=== PATIENT | male | born 1950 | race Caucasian/White ===

== ENCOUNTER 2017-09-16 12:15 | Inpatient (IN) | payer SELFPAY ==
[2017-09-16] VITALS (13 sets, daily range): BP systolic 107–148; BP diastolic 65–93
[~2017-09-16] VITALS: Ht 162.6 cm; Wt 68.1 kg
[~2017-09-16 12:15] MED LIST: HEPARIN SODIUM 1,000 UNIT/1ML VIAL IV ONE; NICARDIPINE 100MCG/ML 10ML VIAL (CATH LAB) IV ONE; NITROGLYCERIN 50MCG/ML 10ML VIAL (CATH LAB) IV ONE
[2017-09-16 12:44] LABS: BASOPHILS % 0.1 % (0.0-2.0); HEMATOCRIT. 46.7 % (42.0-52.0); HEMOGLOBIN. 15.6 g/dL (14.0-18.0); MEAN CORPUSCULAR HEMOGLOBIN 29.7 pg (28.0-32.0); MEAN CORPUSCULAR VOLUME 89.2 fL (80.0-94.0); MEAN PLATELET VOLUME 9.8 fl (7.4-10.4); MONOCYTES % 2.6 % (2.0-8.0); NEUTROPHILS % 90.3 % (40.0-76.0); PLATELET 172 x1000/uL (130-400); RED BLOOD CELL COUNT 5.24 mill/uL (4.7-6.1); RED CELL DISTRIBUTION WIDTH 13.5 % (11.6-14.6)
[2017-09-16] MEDS ORDERED: ASPIRIN 325MG EC TABLET PO ONE (12:45)
[2017-09-16] MEDS ORDERED: NITROGLYCERIN 0.4MG TABLET SL SL ONE (12:45)
[2017-09-16 12:53] LABS: PROTHROMBIN TIME 10.8 sec (9.4-11.6)
[2017-09-16 12:55] LABS: CHLORIDE 101 mEq/L (98-107)
[2017-09-16] MEDS ORDERED: NITROGLYCERIN 0.4MG TABLET SL SL PRN (13:00)
[2017-09-16 13:02] LABS: PLATELET ESTIMATE NORMAL
[2017-09-16] MEDS ORDERED: DOCUSATE SODIUM 100MG CAPSULE PO PRN (13:30)
[2017-09-16] MEDS ORDERED: HYDROCODONE/ACETAMINOPHEN 5/325MG TABLET PO PRN (13:30)
[2017-09-16] MEDS ORDERED: GUAIFENESIN 200MG/10ML SUGAR FREE UDC PO PRN (13:30)
[2017-09-16] MEDS ORDERED: MORPHINE SULFATE 4 MG/ML CPJ (NOT FOR IM USE) IV PRN ×2 (13:30→17:16)
[2017-09-16] MEDS ORDERED: ACETAMINOPHEN 325MG TABLET PO PRN ×2 (13:30→16:30)
[2017-09-16] MEDS ORDERED: CLONIDINE 0.1MG TABLET PO PRN (13:30)
[2017-09-16] MEDS ORDERED: ONDANSETRON HCL 4MG/2ML VIAL IV PRN ×2 (13:30→16:30)
[2017-09-16] MEDS ORDERED: MAGNESIUM/ALUMINUM HYDROXIDE/SIMETHICONE 30ML UDC PO PRN (13:30)
[2017-09-16] MEDS ORDERED: IPRATROPIUM/ALBUTEROL 0.5-3(2.5)MG/3ML NEB INH PRN (13:30)
[2017-09-16] MEDS ORDERED: LORAZEPAM 2MG/ML CPJ IV PRN (13:30)
[2017-09-16] MEDS ORDERED: DIPHENHYDRAMINE 50MG/ML VIAL IV PRN (13:30)
[2017-09-16] MEDS ORDERED: NA PHOS,M-B/NA PHOS,DI-BA ENEMA 118ML PR PRN (13:30)
[2017-09-16] MEDS ORDERED: HEPARIN 5000 UNITS/ML VIAL IV ONE (14:00)
[2017-09-16] MEDS ORDERED: FENTANYL CITRATE/PF 50MCG/ML 2ML VIAL ONE (14:52)
[2017-09-16] MEDS ORDERED: IODIXANOL 320MG/ML 100 ML BOTTLE IV ONE ×2 (14:52→15:34)
[2017-09-16] MEDS ORDERED: MIDAZOLAM HCL 2 MG/2 ML VIAL ONE (14:52)
[2017-09-16] MEDS ORDERED: IOVERSOL 240MG/ML 100ML BOTTLE IV ONE (14:52)
[2017-09-16] MEDS ORDERED: LIDOCAINE HCL 1% 20ML VIAL (Pyxis) INJ ONE (14:53)
[2017-09-16] MEDS ORDERED: CLOPIDOGREL 75MG TABLET ONE (15:53)
[2017-09-16] MEDS ORDERED: METOPROLOL TARTRATE 5MG/5ML VIAL IV ONE (16:21)
[2017-09-16] MEDS ORDERED: MORPHINE SULFATE 2 MG/ML CPJ (NOT FOR IM USE) IV PRN (16:30)
[2017-09-16] MEDS ORDERED: ATROPINE SULFATE 1MG/10ML SYR IV PRN (16:30)
[2017-09-16] MEDS ORDERED: CLOPIDOGREL 75MG TABLET PO ONE (16:30)
[2017-09-16] MEDS ORDERED: INFLUENZA VIRUS VACCINE 0.5ML SYR IM ONE (17:50)
[2017-09-16] MEDS ORDERED: PNEUMOCOCCAL 23-VAL P-SAC VAC 0.5 ML IM ONE (17:50)
[2017-09-16] MEDS: CARVEDILOL 3.125 MG TABLET PO SCH ×2 (18:12→21:00)
[2017-09-16] MEDS: NITROGLYCERIN OINT 1GM/INCH UDPKT TD SCH (18:13)
[2017-09-16] MEDS: ENALAPRIL 2.5MG TABLET PO SCH ×2 (18:13→21:00)
[2017-09-16] MEDS: ENOXAPARIN 40MG/0.4ML SYR SUBCUT SCH (18:14)
[2017-09-16 18:26] LABS: CHLORIDE 104 mEq/L (98-107)
[2017-09-16] MEDS: ATORVASTATIN CALCIUM 20MG TABLET PO SCH (21:27)
[2017-09-17] VITALS (25 sets, daily range): BP systolic 90–129; BP diastolic 54–74
[2017-09-17] MEDS: NITROGLYCERIN OINT 1GM/INCH UDPKT TD SCH ×4 (00:24→17:28)
[2017-09-17 05:21] LABS: BASOPHILS % 0.1 % (0.0-2.0); HEMATOCRIT. 42.2 % (42.0-52.0); LYMPHOCYTES % 9.9 % (20.0-50.0); MEAN CORPUSCULAR HEMOGLOBIN 29.5 pg (28.0-32.0); MEAN CORPUSCULAR VOLUME 88.7 fL (80.0-94.0); MEAN PLATELET VOLUME 10.2 fl (7.4-10.4); MONOCYTES % 7.5 % (2.0-8.0); NEUTROPHILS % 82.5 % (40.0-76.0); PLATELET 147 x1000/uL (130-400); RED BLOOD CELL COUNT 4.75 mill/uL (4.7-6.1); RED CELL DISTRIBUTION WIDTH 13.7 % (11.6-14.6)
[2017-09-17 05:42] LABS: CHLORIDE 102 mEq/L (98-107)
[2017-09-17 05:53] LABS: HDL CHOLESTEROL 52 mg/dL (40-59); LDL CHOLESTEROL 142 mg/dL (5-100); T4 FREE 0.94 ng/dL (0.76-1.46)
[2017-09-17] MEDS ORDERED: ASPIRIN 81MG EC TABLET PO SCH (09:00)
[2017-09-17] MEDS: ASPIRIN 325MG TABLET PO SCH (09:08)
[2017-09-17] MEDS: ENALAPRIL 2.5MG TABLET PO SCH ×2 (09:08→21:00)
[2017-09-17] MEDS: CARVEDILOL 3.125 MG TABLET PO SCH ×2 (09:08→20:53)
[2017-09-17] MEDS: CLOPIDOGREL 75MG TABLET PO SCH (09:08)
[2017-09-17] MEDS: ENOXAPARIN 40MG/0.4ML SYR SUBCUT SCH (17:28)
[2017-09-17] MEDS: ATORVASTATIN CALCIUM 20MG TABLET PO SCH (20:52)
[2017-09-18] VITALS (12 sets, daily range): BP systolic 91–118; BP diastolic 49–91
[2017-09-18] MEDS: NITROGLYCERIN OINT 1GM/INCH UDPKT TD SCH ×2 (06:00)
[2017-09-18 07:18] LABS: BASOPHILS % 0.3 % (0.0-2.0); EOSINOPHILS % 0.5 % (0.0-5.0); HEMATOCRIT. 38.6 % (42.0-52.0); HEMOGLOBIN. 13.1 g/dL (14.0-18.0); LYMPHOCYTES % 29.5 % (20.0-50.0); MEAN CORPUSCULAR HEMOGLOBIN 30.1 pg (28.0-32.0); MEAN CORPUSCULAR VOLUME 88.8 fL (80.0-94.0); MEAN PLATELET VOLUME 10.9 fl (7.4-10.4); MONOCYTES % 9.5 % (2.0-8.0); NEUTROPHILS % 60.2 % (40.0-76.0); PLATELET 139 x1000/uL (130-400); RED BLOOD CELL COUNT 4.34 mill/uL (4.7-6.1); RED CELL DISTRIBUTION WIDTH 13.7 % (11.6-14.6)
[2017-09-18 07:39] LABS: CHLORIDE 104 mEq/L (98-107)
[2017-09-18] MEDS: ASPIRIN 325MG TABLET PO SCH (07:59)
[2017-09-18] MEDS: CLOPIDOGREL 75MG TABLET PO SCH (07:59)
[2017-09-18] MEDS: ENALAPRIL 2.5MG TABLET PO SCH ×2 (08:44→21:13)
[2017-09-18] MEDS: CARVEDILOL 3.125 MG TABLET PO SCH ×2 (09:00→21:13)
[2017-09-18] MEDS: ENOXAPARIN 40MG/0.4ML SYR SUBCUT SCH (18:28)
[2017-09-18] MEDS: ATORVASTATIN CALCIUM 20MG TABLET PO SCH (21:12)
[2017-09-19] VITALS (30 sets, daily range): BP systolic 93–176; BP diastolic 58–143
[2017-09-19 06:12] LABS: CHLORIDE 105 mEq/L (98-107)
[2017-09-19 06:29] LABS: BASOPHILS % 0.3 % (0.0-2.0); EOSINOPHILS % 0.7 % (0.0-5.0); HEMATOCRIT. 38.5 % (42.0-52.0); MEAN CORPUSCULAR HEMOGLOBIN 30.3 pg (28.0-32.0); MEAN CORPUSCULAR VOLUME 90.3 fL (80.0-94.0); MEAN PLATELET VOLUME 10.7 fl (7.4-10.4); MONOCYTES % 10.3 % (2.0-8.0); NEUTROPHILS % 63.7 % (40.0-76.0); PLATELET 127 x1000/uL (130-400); RED BLOOD CELL COUNT 4.27 mill/uL (4.7-6.1); RED CELL DISTRIBUTION WIDTH 13.8 % (11.6-14.6)
[2017-09-19] MEDS: ASPIRIN 325MG TABLET PO SCH (08:20)
[2017-09-19] MEDS: CARVEDILOL 3.125 MG TABLET PO SCH ×2 (08:20→21:21)
[2017-09-19] MEDS: ENALAPRIL 2.5MG TABLET PO SCH ×2 (08:20→21:21)
[2017-09-19] MEDS: CLOPIDOGREL 75MG TABLET PO SCH (09:43)
[2017-09-19] MEDS ORDERED: HEPARIN SODIUM 1,000 UNIT/1ML VIAL IV ONE (10:30)
[2017-09-19] MEDS ORDERED: NICARDIPINE 100MCG/ML 10ML VIAL (CATH LAB) IV ONE (10:31)
[2017-09-19] MEDS ORDERED: NITROGLYCERIN 50MCG/ML 10ML VIAL (CATH LAB) IV ONE (10:31)
[2017-09-19] MEDS ORDERED: IODIXANOL 320MG/ML 100 ML BOTTLE IV ONE ×2 (12:30→13:56)
[2017-09-19] MEDS ORDERED: LIDOCAINE HCL 1% 20ML VIAL (Pyxis) INJ ONE (12:30)
[2017-09-19] MEDS ORDERED: MIDAZOLAM HCL 2 MG/2 ML VIAL ONE (13:10)
[2017-09-19] MEDS ORDERED: IOVERSOL 240MG/ML 100ML BOTTLE IV ONE (13:10)
[2017-09-19] MEDS ORDERED: ATROPINE SULFATE 0.1MG/ML 10ML DISP.SYRIN ONE (13:20)
[2017-09-19] MEDS ORDERED: DOPAMINE 400MG PREMIX 250 ML IV ONE (14:14)
[2017-09-19] MEDS ORDERED: CLOPIDOGREL 75MG TABLET ONE (14:24)
[2017-09-19] MEDS ORDERED: ATROPINE SULFATE 1MG/10ML SYR IV PRN (14:30)
[2017-09-19] MEDS ORDERED: SODIUM CHLORIDE 0.45% 1,000 ML IV ONE (14:30)
[2017-09-19] MEDS ORDERED: MORPHINE SULFATE 2 MG/ML CPJ (NOT FOR IM USE) IV PRN (14:30)
[2017-09-19] MEDS ORDERED: ACETAMINOPHEN 325MG TABLET PO PRN (14:30)
[2017-09-19] MEDS ORDERED: ONDANSETRON HCL 4MG/2ML VIAL IV PRN (14:30)
[2017-09-19] MEDS: ENOXAPARIN 40MG/0.4ML SYR SUBCUT SCH (17:07)
[2017-09-20] VITALS (44 sets, daily range): BP systolic 99–146; BP diastolic 55–110
[2017-09-20 06:32] LABS: BASOPHILS % 0.3 % (0.0-2.0); HEMATOCRIT. 39.8 % (42.0-52.0); HEMOGLOBIN. 13.5 g/dL (14.0-18.0); LYMPHOCYTES % 20.6 % (20.0-50.0); MEAN CORPUSCULAR VOLUME 88.7 fL (80.0-94.0); MEAN PLATELET VOLUME 10.6 fl (7.4-10.4); MONOCYTES % 8.7 % (2.0-8.0); NEUTROPHILS % 69.4 % (40.0-76.0); PLATELET 134 x1000/uL (130-400); RED BLOOD CELL COUNT 4.49 mill/uL (4.7-6.1); RED CELL DISTRIBUTION WIDTH 13.3 % (11.6-14.6)
[2017-09-20 06:43] LABS: CHLORIDE 108 mEq/L (98-107)
[2017-09-20] MEDS: ASPIRIN 325MG TABLET PO SCH (08:38)
[2017-09-20] MEDS: CLOPIDOGREL 75MG TABLET PO SCH (08:41)
[2017-09-20] MEDS: ENALAPRIL 2.5MG TABLET PO SCH ×2 (08:41→20:53)
[2017-09-20] MEDS: CARVEDILOL 3.125 MG TABLET PO SCH ×2 (08:42→21:44)
[2017-09-20] MEDS ORDERED: ASPIRIN 325MG TABLET PO SCH (09:00)
[2017-09-20] MEDS ORDERED: CLOPIDOGREL 75MG TABLET PO SCH (09:00)
[2017-09-20] MEDS: ENOXAPARIN 40MG/0.4ML SYR SUBCUT SCH (18:15)
[2017-09-20] MEDS ORDERED: ATORVASTATIN CALCIUM 20MG TABLET PO SCH (21:00)
[2017-09-21 04:00] VITALS: BP 94/54
[2017-09-21 06:13] LABS: BASOPHILS % 0.4 % (0.0-2.0); EOSINOPHILS % 1.6 % (0.0-5.0); HEMOGLOBIN. 13.5 g/dL (14.0-18.0); LYMPHOCYTES % 22.1 % (20.0-50.0); MEAN CORPUSCULAR HEMOGLOBIN 30.2 pg (28.0-32.0); MEAN CORPUSCULAR VOLUME 89.2 fL (80.0-94.0); MEAN PLATELET VOLUME 11.1 fl (7.4-10.4); MONOCYTES % 9.5 % (2.0-8.0); NEUTROPHILS % 66.4 % (40.0-76.0); PLATELET 137 x1000/uL (130-400); RED BLOOD CELL COUNT 4.48 mill/uL (4.7-6.1); RED CELL DISTRIBUTION WIDTH 13.5 % (11.6-14.6)
[2017-09-21 06:50] LABS: CHLORIDE 107 mEq/L (98-107)
[2017-09-21 08:00] VITALS: BP 117/74
[2017-09-21] MEDS: ENALAPRIL 2.5MG TABLET PO SCH (09:00)
[2017-09-21] MEDS: ASPIRIN 325MG TABLET PO SCH (10:04)
[2017-09-21] MEDS: CLOPIDOGREL 75MG TABLET PO SCH (10:04)
[2017-09-21] MEDS: CARVEDILOL 3.125 MG TABLET PO SCH (10:05)
[2017-09-21 11:39] VITALS: BP 117/72
== END 2017-09-21 15:51 | disposition home or self-care (01) | DRG 174 ==
LOC: ER 12:34 → ORIP 13:51 → CVICU 16:55 → 3WST 09-17 12:45 → CVICU 09-19 16:55 → 5WST 09-20 22:30
PROVIDERS: ADMIT Internal Medicine; ATTEND Internal Medicine
PROC: 4A023N7 Measurement of Cardiac Sampling and Pressure, Left Heart, Percutaneous Approach (ICD-10-PCS; principal; 2017-09-16)
PROC: 0270346 Dilation of Coronary Artery, One Artery, Bifurcation, with Drug-eluting Intraluminal Device, Percutaneous Approach (ICD-10-PCS; 2017-09-16)
PROC: B2111ZZ Fluoroscopy of Multiple Coronary Arteries using Low Osmolar Contrast (ICD-10-PCS; 2017-09-16)
PROC: B2151ZZ Fluoroscopy of Left Heart using Low Osmolar Contrast (ICD-10-PCS; 2017-09-16)
PROC: 4A023N7 Measurement of Cardiac Sampling and Pressure, Left Heart, Percutaneous Approach (ICD-10-PCS; 2017-09-19)
PROC: B2111ZZ Fluoroscopy of Multiple Coronary Arteries using Low Osmolar Contrast (ICD-10-PCS; 2017-09-19)
PROC: B2151ZZ Fluoroscopy of Left Heart using Low Osmolar Contrast (ICD-10-PCS; 2017-09-19)
PROC: 027135Z Dilation of Coronary Artery, Two Arteries with Two Drug-eluting Intraluminal Devices, Percutaneous Approach (ICD-10-PCS; 2017-09-19)
DX: I21.9 Acute myocardial infarction, unspecified (principal); R65.10 Systemic inflammatory response syndrome (SIRS) of non-infectious origin without acute organ dysfunction; D69.6 Thrombocytopenia, unspecified; I10 Essential (primary) hypertension; I25.110 Atherosclerotic heart disease of native coronary artery with unstable angina pectoris
CPT/HCPCS: 36415; 71045; 80048; 80053; 80061; 83735; 83880; 84439; 84443; 84484; 85025; 85347; 85610; 90686; 90732; 92928; 93005; 93306; 93458; 96374; 99291; C1725; C1769; C1887; C1893; J0461; J1265; J1644; J1650; J2250; J2270; J2405; J3010; J3490; J7030; Q9967

== ENCOUNTER 2018-10-03 06:49 | Inpatient (IN) | payer MEDICARE, MEDICAID ==
[2018-10-03] VITALS (17 sets, daily range): BP systolic 108–153; BP diastolic 54–82
[~2018-10-03] VITALS: Ht 165.1 cm; Wt 62.8 kg
[~2018-10-03 06:49] MED LIST changes: +ATOR20TA65 PO; +CARV3.1242 PO; +CLOP75TA16 PO; +ENAL5TAB PO; -HEPARIN SODIUM 1,000 UNIT/1ML VIAL IV ONE; -NICARDIPINE 100MCG/ML 10ML VIAL (CATH LAB) IV ONE; -NITROGLYCERIN 50MCG/ML 10ML VIAL (CATH LAB) IV ONE
[2018-10-03] MEDS ORDERED: ASPI-1159 PO (08:19)
[2018-10-03] MEDS ORDERED: IODIXANOL 320MG/ML 100 ML BOTTLE IV ONE (09:48)
[2018-10-03] MEDS ORDERED: LIDOCAINE HCL 1% 20ML VIAL (Pyxis) INJ ONE (09:48)
[2018-10-03] MEDS ORDERED: ASPIRIN/SOD BICARB/CITRIC ACID 324MG TAB EFF ONE (09:52)
[2018-10-03] MEDS ORDERED: FENTANYL CITRATE/PF 50MCG/ML 2ML VIAL ONE (10:29)
[2018-10-03] MEDS ORDERED: MIDAZOLAM HCL 2 MG/2 ML VIAL ONE (10:29)
[2018-10-03] MEDS ORDERED: HEPARIN SODIUM 1,000 UNIT/1ML VIAL IV ONE ×2 (10:59→14:54)
[2018-10-03] MEDS ORDERED: IOHEXOL-300 100 ML BOTTLE ONE (11:17)
[2018-10-03] MEDS ORDERED: ONDANSETRON HCL 4MG/2ML INJ IV PRN (11:30)
[2018-10-03] MEDS ORDERED: CLOPIDOGREL 75MG TABLET PO SCH (11:30)
[2018-10-03] MEDS ORDERED: ACETAMINOPHEN 325MG TABLET PO PRN (11:30)
[2018-10-03] MEDS ORDERED: ATROPINE SULFATE 1MG/10ML SYR IV PRN (11:30)
[2018-10-03] MEDS ORDERED: MORPHINE SULFATE 4 MG/ML CPJ (NOT FOR IM USE) IV PRN (11:30)
[2018-10-03] MEDS ORDERED: SODIUM CHLORIDE 0.45% 1,000 ML IV ONE (11:30)
[2018-10-03] MEDS ORDERED: CLOPIDOGREL 75MG TABLET ONE (11:32)
[2018-10-03] MEDS ORDERED: NITROGLYCERIN 50MCG/ML 10ML VIAL (CATH LAB) IV ONE (13:56)
[2018-10-03] MEDS ORDERED: NICARDIPINE 100MCG/ML 10ML VIAL (CATH LAB) IV ONE (13:56)
[2018-10-03] MEDS ORDERED: ATORVASTATIN CALCIUM 20MG TABLET PO SCH (21:00)
[2018-10-04] VITALS (13 sets, daily range): BP systolic 93–124; BP diastolic 55–79
[2018-10-04 07:09] LABS: BASOPHILS % 0.2 % (0.0-2.0); EOSINOPHILS % 1.6 % (0.0-5.0); HEMATOCRIT. 42.4 % (42.0-52.0); HEMOGLOBIN. 14.5 g/dL (14.0-18.0); LYMPHOCYTES % 20.7 % (20.0-50.0); MEAN CORPUSCULAR HEMOGLOBIN 31.3 pg (28.0-32.0); MEAN CORPUSCULAR VOLUME 91.7 fL (80.0-94.0); MEAN PLATELET VOLUME 10.2 fl (7.4-10.4); MONOCYTES % 8.1 % (2.0-8.0); NEUTROPHILS % 69.4 % (40.0-76.0); PLATELET 129 x1000/uL (130-400); RED BLOOD CELL COUNT 4.62 mill/uL (4.7-6.1); RED CELL DISTRIBUTION WIDTH 13.1 % (11.6-14.6)
[2018-10-04 07:15] LABS: CHLORIDE 111 mEq/L (98-107)
[2018-10-04] MEDS ORDERED: ASPIRIN 325MG TABLET PO SCH (09:00)
[2018-10-04] MEDS ORDERED: CLOPIDOGREL 75MG TABLET PO SCH (09:00)
[2018-10-04] MEDS ORDERED: ASPI-1158 PO (11:52)
== END 2018-10-04 14:52 | disposition home or self-care (01) | DRG 247 ==
LOC: CCL 06:49 → 3WST 06:50
PROVIDERS: ADMIT Specialist; ATTEND Specialist
PROC: 027034Z Dilation of Coronary Artery, One Artery with Drug-eluting Intraluminal Device, Percutaneous Approach (ICD-10-PCS; principal; 2018-10-03)
PROC: 4A033BC Measurement of Arterial Pressure, Coronary, Percutaneous Approach (ICD-10-PCS; 2018-10-03)
PROC: 4A023N7 Measurement of Cardiac Sampling and Pressure, Left Heart, Percutaneous Approach (ICD-10-PCS; 2018-10-03)
PROC: B2111ZZ Fluoroscopy of Multiple Coronary Arteries using Low Osmolar Contrast (ICD-10-PCS; 2018-10-03)
PROC: B2151ZZ Fluoroscopy of Left Heart using Low Osmolar Contrast (ICD-10-PCS; 2018-10-03)
DX: I25.10 Atherosclerotic heart disease of native coronary artery without angina pectoris (principal); E78.00 Pure hypercholesterolemia, unspecified; I73.9 Peripheral vascular disease, unspecified; I25.2 Old myocardial infarction; Z95.5 Presence of coronary angioplasty implant and graft; Z79.82 Long term (current) use of aspirin
CPT/HCPCS: 36415; 80048; 85347; 92928; 92978; 92979; 93005; 93458; C1725; C1726; C1769; C1874; C1887; C1893; J1644; J2250; J3010; J3490; Q9967

== ENCOUNTER → 2020-03-06 | Outpatient (CLI) | payer MEDICAID, MEDICARE ==
[~2020-03-06] MED LIST changes: +ASPI-1158 PO; -CARV3.1242 PO; -CLOP75TA16 PO; +CLOP75TA4 PO; -ENAL5TAB PO
== END | disposition home or self-care (01) ==
LOC: LAB 08:22
PROVIDERS: ATTEND Specialist
DX: R05 Cough (principal); Z20.828 Contact with and (suspected) exposure to other viral communicable diseases
CPT/HCPCS: C9803; U0003

== ENCOUNTER → 2020-03-07 | Day surgery (SDC) | payer MEDICARE ==
[~2020-03-07] VITALS: Ht 165.1 cm; Wt 64.9 kg
[~2020-03-07] MED LIST changes: +ACETAMINOPHEN 325MG TABLET PO PRN; +ASPIRIN/SOD BICARB/CITRIC ACID 324MG TAB EFF ONE; +ATROPINE SULFATE 1MG/10ML SYR IV PRN; +FENTANYL CITRATE/PF 50MCG/ML 2ML VIAL ONE; +HEPARIN SODIUM 1,000 UNIT/1ML VIAL IV ONE; +IODIXANOL 320MG/ML 100 ML BOTTLE IV ONE; +LIDOCAINE HCL 1% 20ML VIAL (Pyxis) INJ ONE; +MIDAZOLAM HCL 2 MG/2 ML VIAL ONE; +MORPHINE SULFATE 2 MG/ML CPJ (NOT FOR IM USE) IV PRN; +ONDANSETRON HCL 4MG/2ML INJ IV PRN
== END | disposition home or self-care (01) ==
LOC: CCL 11:41
PROVIDERS: ATTEND Specialist
DX: I25.10 Atherosclerotic heart disease of native coronary artery without angina pectoris (principal); Z79.82 Long term (current) use of aspirin; Z79.899 Other long term (current) drug therapy; Z98.890 Other specified postprocedural states
CPT/HCPCS: 93458; C1769; C1887; C1893; J1644; J2250; J3010; J3490; Q9967